=== PATIENT | female | born 1990 | race Caucasian/White ===

== ENCOUNTER 2018-10-20 19:52 | Emergency (ER) | payer MEDICAID ==
--- NOTE | 2018-10-20 20:10 | Emergency Department Report ---
Chief Complaint: Vaginal Bleeding Stated Complaint: BACK PAIN, VAGINAL BLEEDING Time Seen by Provider: 10/20/18 20:04 - HPI History of Present Illness: This is a 28 y.o. female who was seen at [facility] office at [facility] and told she was having a miscarriage. She was told to come to the ER to have a D/C with Dr. Willingham. Vaginal bleeding started 9 days ago. LMP 08/15/18, A0. - ROS Review of Systems: Vaginal bleeding and low back pain - Exam Vital Signs: Vital Signs 10/20/18 19:56 Temperature 97.4 F L Pulse Rate 106 H Respiratory 18 Rate Blood Pressure 158/88 [right] O2 Sat by Pulse 100 Oximetry MSE screening note: Focused history and physical exam performed. Due to findings the following was ordered: Labs and OB US. ACC for further evaluation. ED Disposition for MSE Condition: Stable
[2018-10-20 20:37] LABS: Basophils # (Auto) 0.1 K/mm3 (0.0-0.1); Basophils % (Auto) 0.8 % (0.0-1.8); Eosinophils # (Auto) 0.1 K/mm3 (0.0-0.4); Eosinophils % (Auto) 0.4 % (0.0-4.3); Hematocrit 38.9 % (30.3-42.9); Lymphocytes # (Auto) 1.9 K/mm3 (1.2-5.4); Mean Corpuscular HGB Conc 33 % (30-34); Mean Corpuscular Volume 91 fl (79-97); Monocytes # (Auto) 0.6 K/mm3 (0.0-0.8); Monocytes % (Auto) 5.1 % (0.0-7.3); Platelet Count 280 K/mm3 (140-440); Red Cell Distribution Width 13.7 % (13.2-15.2)
--- NOTE | 2018-10-20 23:49 | Ultrasound Report ---
PROCEDURE: US OB <= 14 WEEKS FETUS TECHNIQUE: Real-time transabdominal sonography of the uterus, placenta, amniotic fluid, adnexa, and fetus was performed with image documentation. Measurements were obtained to determine age/size. M-mode Doppler was used to document heartbeat. ADDITIONAL GESTATION: None. HISTORY: vaginal bleeding, 5 wks gest COMPARISONS: None . FINDINGS: CRL: 4 mm, which corresponds to a gestational age of: 6 weeks, 1 days. Yolk Sac: Appropriate for gestational age. . Embryonic Cardiac Activity: No heart activity on this scan . Gestational Sac: Size and shape are appropriate for gestational age Placenta: Normal Amniotic fluid: Appropriate for gestational age. Cervix: Normal. Right Ovary: Dominant cyst measures 2.3 cm . Left Ovary: Normal . Uterus and adnexa: Normal. The findings may indicate multiple etiologies including early or failure. Follow- up studies may include serial beta-hCG levels and repeat ultrasound. IMPRESSION: There is a gestational sac within the uterus. The gestational age is approximately 6 weeks. A p ole is identified. No heart activity is identified on this study. This study may be too early f or cardiac activity. The findings may indicate multiple etiologies as described. Follow-up stud ies may include serial beta-hCG levels and repeat ultrasound. This document is electronically signed by Ginger Galindo DO., October 20 2018 11:47:18 PM ET
[2018-10-21 00:18] LABS: Bilirubin,Urine NEG (Negative); Blood,Urine LG (Negative); Color,Urine Yellow (Yellow); Mucus,Urine FEW /HPF; Urobilinogen,Urine < 2.0 mg/dL (<2.0)
[2018-10-21 00:21] LABS: RBC,Urine > 182.0 /HPF (0.0-6.0)
--- NOTE | 2018-10-21 00:29 | Emergency Department Report ---
ED HPI - General Chief complaint: Vaginal Bleeding Stated complaint: BACK PAIN, VAGINAL BLEEDING Time Seen by Provider: 10/20/18 20:04 Source: patient Mode of arrival: Ambulatory Limitations: No Limitations - History of Present Illness Initial comments: This a 28-year-old female Presents to the emergency room with vaginal bleeding that started 9 days ago. The patient reports she is 5 weeks . She was seen in her [employer] OPERATOR office at [facility] and told she may possibly be miscarriage. She was told to come to the ER to have a D&C with Dr. Willingham. Her last menstrual period was 08/15/18, A0. She denies abdominal pain, back pain, urinary frequency, urinary urgency, or dysuria. MD Complaint: vaginal bleeding Onset/Timin -: days(s) Severity: mild Improves with: none Worsens with: none Associated symptoms: vaginal bleeding. denies: nausea/vomiting, vaginal discharge, abdominal pain, headache, vision changes, malaise, dysparuenia, rash, shortness of breath, syncope, weakness Vaginal bleeding: light :: Yes Number of weeks : 5 OB History - Current : no complications OB History - Previous Pregnancies: no complications Last menstrual period: 08/15/18 Pre-cuate care: followed by OB - Related Data : 4 Para: 3 Ab: 0 Allergies Allergy/AdvReac Type Severity Reaction Status Date / Time acetaminophen [From Percocet] Allergy Rash Verified 10/20/18 20:08 codeine Allergy Rash Verified 10/20/18 20:09 metoclopramide [From Reglan] Allergy Rash Verified 10/20/18 20:08 oxycodone [From Percocet] Allergy Rash Verified 10/20/18 20:08 Penicillins Allergy Rash Verified 10/20/18 20:08 ED Review of Systems ROS: Stated complaint: BACK PAIN, VAGINAL BLEEDING Other details as noted in HPI Constitutional: denies: chills, fever Respiratory: denies: cough, shortness of breath, wheezing Cardiovascular: denies: chest pain, palpitations Gastrointestinal: denies: abdominal pain, nausea, diarrhea Genitourinary: other (vaginal bleeding during ). denies: urgency, dysuria, discharge Musculoskeletal: denies: back pain, joint swelling, arthralgia Skin: denies: rash, lesions Neurological: denies: headache, weakness, paresthesias Psychiatric: denies: anxiety, depression ED Past Medical Hx - Past Medical History Previous Medical History?: No - Social History Smoking Status: Current Every Day Smoker Substance Use Type: None ED Physical Exam - General Limitations: No Limitations General appearance: alert, in no apparent distress, obese - Respiratory Respiratory exam: Present: normal lung sounds bilaterally. Absent: respiratory distress - Cardiovascular Cardiovascular Exam: Present: regular rate, normal rhythm. Absent: systolic m urmur, diastolic murmur, rubs, gallop - GI/Abdominal GI/Abdominal exam: Present: soft, normal bowel sounds. Absent: distended, tenderness, guarding, rebound, rigid, organomegaly, mass, bruit, pulsatile mass - Back Exam Back exam: Absent: CVA tenderness (R), CVA tenderness (L) - Neurological Exam Neurological exam: Present: alert, oriented X3, normal gait - Psychiatric Psychiatric exam: Present: normal affect, normal mood - Skin Skin exam: Present: warm, dry, intact, normal color. Absent: rash ED Course Vital Signs 10/20/18 19:56 Temperature 97.4 F L Pulse Rate 106 H Respiratory 18 Rate Blood Pressure 158/88 [right] O2 Sat by Pulse 100 Oximetry ED Medical Decision Making - Lab Data Result diagrams: 10/20/18 20:16 Lab Results 10/20/18 10/20/18 10/20/18 Range/Units 20:16 20:16 20:16 WBC 11.7 H (4.5-11.0) K/mm3 RBC 4.30 (3.65-5.03) M/mm3 Hgb 13.0 (10.1-14.3) gm/dl Hct 38.9 (30.3-42.9) % MCV 91 (79-97) fl MCH 30 (28-32) pg MCHC 33 (30-34) % RDW 13.7 (13.2-15.2) % Plt Count 280 (140-440) K/mm3 Lymph % (Auto) 16.0 (13.4-35.0) % Kimble % (Auto) 5.1 (0.0-7.3) % Eos % (Auto) 0.4 (0.0-4.3) % Baso % (Auto) 0.8 (0.0-1.8) % Lymph # 1.9 (1.2-5.4) K/mm3 Kimble # 0.6 (0.0-0.8) K/mm3 Eos # 0.1 (0.0-0.4) K/mm3 Baso # 0.1 (0.0-0.1) K/mm3 Seg Neutrophils % 77.7 H (40.0-70.0) % Seg Neutrophils # 9.1 H (1.8-7.7) K/mm3 HCG, Quant 804.5 H (0-4) mIU/mL Urine Color (Yellow) Urine Turbidity (Clear) Urine pH (5.0-7.0) Ur Specific Henderson (1.003-1.030) Urine Protein (Negative) mg/dL Urine Glucose (UA) (Negative) mg/dL Urine Ketones (Negative) mg/dL Urine Blood (Negative) Urine Nitrite (Negative) Urine Bilirubin (Negative) Urine Urobilinogen (<2.0) mg/dL Ur Leukocyte Esterase (Negative) Urine WBC (Auto) (0.0-6.0) /HPF Urine RBC (Auto) (0.0-6.0) /HPF U Epithel Cells (Auto) (0-13.0) /HPF Urine Mucus /HPF Blood Type O POSITIVE Antibody Screen Negative 10/20/18 Range/Units 23:52 WBC (4.5-11.0) K/mm3 RBC (3.65-5.03) M/mm3 Hgb (10.1-14.3) gm/dl Hct (30.3-42.9) % MCV (79-97) fl MCH (28-32) pg MCHC (30-34) % RDW (13.2-15.2) % Plt Count (140-440) K/mm3 Lymph % (Auto) (13.4-35.0) % Kimble % (Auto) (0.0-7.3) % Eos % (Auto) (0.0-4.3) % Baso % (Auto) (0.0-1.8) % Lymph # (1.2-5.4) K/mm3 Kimble # (0.0-0.8) K/mm3 Eos # (0.0-0.4) K/mm3 Baso # (0.0-0.1) K/mm3 Seg Neutrophils % (40.0-70.0) % Seg Neutrophils # (1.8-7.7) K/mm3 HCG, Quant (0-4) mIU/mL Urine Color Yellow (Yellow) Urine Turbidity Slightly-cloudy (Clear) Urine pH 6.0 (5.0-7.0) Ur Specific Henderson 1.015 (1.003-1.030) Urine Protein 30 mg/dl (Negative) mg/dL Urine Glucose (UA) Neg (Negative) mg/dL Urine Ketones Neg (Negative) mg/dL Urine Blood Lg (Negative) Urine Nitrite Neg (Negative) Urine Bilirubin Neg (Negative) Urine Urobilinogen < 2.0 (<2.0) mg/dL Ur Leukocyte Esterase Neg (Negative) Urine WBC (Auto) 5.0 (0.0-6.0) /HPF Urine RBC (Auto) > 182.0 (0.0-6.0) /HPF U Epithel Cells (Auto) 2.0 (0-13.0) /HPF Urine Mucus Few /HPF Blood Type Antibody Screen - Radiology Data Radiology results: report reviewed PROCEDURE: US OB TRANSVAGINAL TECHNIQUE: Real-time transabdominal sonography of the uterus, placenta, amniotic fluid, adnexa, and fetus was performed with image documentation. Measurements were obtained to determine age/size. M-mode Doppler was used to document heartbeat. ADDITIONAL GESTATION: None. HISTORY: vaginal bleeding, 5 wks gest COMPARISONS: None . FINDINGS: CRL: 4 mm, which corresponds to a gestational age of: 6 weeks, 1 days. Yolk Sac: Appropriate for gestational age. . Embryonic Cardiac Activity: No heart activity on this scan . Gestational Sac: Size and shape are appropriate for gestational age Placenta: Normal Amniotic fluid: Appropriate for gestational age. Cervix: Normal. Right Ovary: Dominant cyst measures 2.3 cm . Left Ovary: Normal . Uterus and adnexa: Normal. The findings may indicate multiple etiologies including early or failure. Follow-up studies may include serial beta-hCG levels and repeat ultrasound. IMPRESSION: There is a gestational sac within the uterus. The gestational age is approximately 6 weeks. A pole is identified. No heart activity is identified on this study. This study may be too early for cardiac activity. The findings may indicate multiple etiologies as described. Follow-up studies may include serial beta-hCG levels and repeat ultrasound. - Medical Decision Making This is a 28 y.o. female presents with vaginal bleeding during for 9 days. Patient was examined by me. Vitals are normal and patient is in no acute distress. Obtained a urinalysis, CBC, hCG quant, and OB ultrasound. Quant 804.5 all other labs unremarkable. There is a gestational sac within the uterus. The gestational age is approximately 6 weeks. A pole is identified. No heart activity is identified on this study. This study may be too early for cardiac activity. The findings may indicate multiple etiologies as described. Follow-up studies may include serial beta-hCG levels and repeat ultrasound. Patient instructed to have repeat hCG quant in 48 hours with OB/ [facility] or in ER to r/o miscarriage. Patient discharged home in stable condition. Critical care attestation.: If time is entered above; I have spent that time in minutes in the direct care of this critically ill patient, excluding procedure time. ED Disposition Clinical Impression: Threatened miscarriage in early , Vaginal bleeding affecting early Disposition: TO HOME OR SELFCARE Is pt being admited?: No Does the pt Need Aspirin: No Condition: Stable Instructions: Threatened Miscarriage (ED) Additional Instructions: Have repeat hCG quant labs in 48 hours with S[facility] SCREW MACHINE OPERATOR or ER. Your hCG quantitative on this visit was 804.5. Remain on bed rest. Follow up with S[employer] SCREW MACHINE OPERATOR in 24-48 hours. Return to ER if increased vaginal bleeding, abdominal pain, and low back pain. Referrals: [facility] [Provider Group] - 3-5 Days [facility] [Provider Group] - 3-5 Days [facility] [facility] [Provider Group] - 3-5 Days Time of Disposition: 00:32
[2018-10-21 00:50] VITALS: BP 155/72
== END 2018-10-21 01:46 | disposition home or self-care (01) ==
LOC: ED 19:52
DX: O20.0 Threatened abortion (principal); Z3A.01 Less than 8 weeks gestation of pregnancy
CPT/HCPCS: 36415; 76801; 76817; 81001; 84702; 85025; 86850; 86900; 86901

== ENCOUNTER 2020-05-06 10:37 | Emergency (ER) | payer MEDICAID ==
[2020-05-06 10:59] VITALS: BP 129/70
[2020-05-06] MEDS ORDERED: ONDANSETRON 4 MG/2 ML INJ IV ONE (17:47)
[2020-05-06] MEDS ORDERED: SODIUM CHLORIDE 0.9% 1000 ML 1,000 ML IV ONE (17:47)
[2020-05-06] MEDS ORDERED: D5W/0.45% NACL 1,000 ML IV SCH (18:00)
[2020-05-06 18:36] LABS: Basophils # (Auto) 0.1 K/mm3 (0.0-0.1); Basophils % (Auto) 0.7 % (0.0-1.8); Eosinophils # (Auto) 0.1 K/mm3 (0.0-0.4); Eosinophils % (Auto) 0.6 % (0.0-4.3); Hematocrit 37.5 % (30.3-42.9); Lymphocytes # (Auto) 3.1 K/mm3 (1.2-5.4); Lymphocytes % (Auto) 22.5 % (13.4-35.0); Mean Corpuscular HGB Conc 35 % (30-34); Mean Corpuscular Volume 89 fl (79-97); Monocytes % (Auto) 7.4 % (0.0-7.3); Platelet Count 266 K/mm3 (140-440); Red Blood Count 4.19 M/mm3 (3.65-5.03); Red Cell Distribution Width 13.1 % (13.2-15.2)
[2020-05-06 19:16] LABS: Alanine Aminotransferase 17 units/L (7-56); Albumin 4.9 g/dL (3.9-5); Blood Urea Nitrogen 9 mg/dL (7-17); Calcium 9.8 mg/dL (8.4-10.2); Hemolysis Index 12
[2020-05-06 19:20] LABS: BUN/Creatinine Ratio 15
--- NOTE | 2020-05-06 19:34 | Emergency Department Report ---
<BERYL MARIN - Last Filed: 05/06/20 20:53> ED General Adult HPI - General Chief complaint: Nausea/Vomiting/Diarrhea Stated complaint: 6 WEEKS /CANT KEEP ANYTHING DOWN Time Seen by Provider: 05/06/20 17:24 Source: patient Mode of arrival: Ambulatory Limitations: No Limitations - History of Present Illness Initial comments: Patient is a 30-year-old female presents emergency room with complaints of nausea and vomiting that began a week ago. She states that it has worsened in the last few days and she is not able to tolerate p.o. intake. She states that she is currently approximately 7 weeks . She states that she is also been having some lower abdominal cramping and spotting whenever she wipes. She denies any heavy bleeding or passing clots. She states that her [facility] SERVICES REPRESENTATIVE is at [facility]. She states that that she went there today at 2 PM and they advised her to be evaluated in the emergency department. She states that yesterday she went to [facility] emergency room and had lab work performed and urine sample and was given IV fluids and medications. She states that she was diagnosed with a urinary tract infection and given a prescription for antibiotics. She states that her OB also gave her Zofran and that the other ER gave her Phenergan suppositories. She states despite the medications she is still had vomiting. She states her last menstrual cycle was March 28. She denies any past medical history. She has an allergy to Percocet, codeine, Reglan, penicillin. /P:3/A:1 Severity scale (0 -10): 1 - Related Data Allergies Allergy/AdvReac Type Severity Reaction Status Date / Time acetaminophen [From Percocet] Allergy Rash Verified 10/20/18 20:08 codeine Allergy Rash Verified 10/20/18 20:09 metoclopramide [From Reglan] Allergy Rash Verified 10/20/18 20:08 oxycodone [From Percocet] Allergy Rash Verified 10/20/18 20:08 Penicillins Allergy Rash Verified 10/20/18 20:08 ED Review of Systems Comment: All other systems reviewed and negative ED Past Medical Hx - Past Medical History Previous Medical History?: No - Surgical History Past Surgical History?: No - Social History Smoking Status: Current Every Day Smoker Substance Use Type: None ED Physical Exam - General Limitations: No Limitations General appearance: alert, in no apparent distress - Head Head exam: Present: atraumatic, normocephalic - Eye Eye exam: Present: normal appearance - ENT ENT exam: Present: mucous membranes moist - Respiratory Respiratory exam: Present: normal lung sounds bilaterally. Absent: respiratory distress, wheezes, rales, rhonchi, stridor, chest wall tenderness, accessory muscle use, decreased breath sounds, prolonged expiratory - Cardiovascular Cardiovascular Exam: Present: regular rate, normal rhythm, normal heart sounds. Absent: systolic murmur, diastolic murmur, rubs, gallop - GI/Abdominal GI/Abdominal exam: Present: soft, normal bowel sounds. Absent: distended, tenderness, guarding, rebound, rigid - Neurological Exam Neurological exam: Present: alert, oriented X3 - Psychiatric Psychiatric exam: Present: normal affect, normal mood - Skin Skin exam: Present: warm, dry, intact ED Medical Decision Making - Lab Data Result diagrams: 05/06/20 18:01 05/06/20 18:01 Lab Results 05/06/20 05/06/20 05/06/20 Range/Units 18:01 18:01 18:01 WBC 13.9 H (4.5-11.0) K/mm3 RBC 4.19 (3.65-5.03) M/mm3 Hgb 13.0 (10.1-14.3) gm/dl Hct 37.5 (30.3-42.9) % MCV 89 (79-97) fl MCH 31 (28-32) pg MCHC 35 H (30-34) % RDW 13.1 L (13.2-15.2) % Plt Count 266 (140-440) K/mm3 Lymph % (Auto) 22.5 (13.4-35.0) % Mccreary % (Auto) 7.4 H (0.0-7.3) % Eos % (Auto) 0.6 (0.0-4.3) % Baso % (Auto) 0.7 (0.0-1.8) % Lymph # (Auto) 3.1 (1.2-5.4) K/mm3 Mccreary # (Auto) 1.0 H (0.0-0.8) K/mm3 Eos # (Auto) 0.1 (0.0-0.4) K/mm3 Baso # (Auto) 0.1 (0.0-0.1) K/mm3 Seg Neutrophils % 68.8 (40.0-70.0) % Seg Neutrophils # 9.5 H (1.8-7.7) K/mm3 Sodium 139 (137-145) mmol/L Potassium 3.9 (3.6-5.0) mmol/L Chloride 98.6 (98-107) mmol/L Carbon Dioxide 21 L (22-30) mmol/L Anion Gap 23 mmol/L BUN 9 (7-17) mg/dL Creatinine 0.6 (0.6-1.2) mg/dL Estimated GFR > 60 ml/min BUN/Creatinine Ratio 15 % Glucose 74 (65-100) mg/dL Calcium 9.8 (8.4-10.2) mg/dL Total Bilirubin 0.60 (0.1-1.2) mg/dL AST 17 (5-40) units/L ALT 17 (7-56) units/L Alkaline Phosphatase 85 (35-129) units/L Total Protein 7.9 (6.3-8.2) g/dL Albumin 4.9 (3.9-5) g/dL Albumin/Globulin Ratio 1.6 % HCG, Quant 84333 H (0-4) mIU/mL Blood Type 05/06/20 Range/Units 18:01 WBC (4.5-11.0) K/mm3 RBC (3.65-5.03) M/mm3 Hgb (10.1-14.3) gm/dl Hct (30.3-42.9) % MCV (79-97) fl MCH (28-32) pg MCHC (30-34) % RDW (13.2-15.2) % Plt Count (140-440) K/mm3 Lymph % (Auto) (13.4-35.0) % Mccreary % (Auto) (0.0-7.3) % Eos % (Auto) (0.0-4.3) % Baso % (Auto) (0.0-1.8) % Lymph # (Auto) (1.2-5.4) K/mm3 Mccreary # (Auto) (0.0-0.8) K/mm3 Eos # (Auto) (0.0-0.4) K/mm3 Baso # (Auto) (0.0-0.1) K/mm3 Seg Neutrophils % (40.0-70.0) % Seg Neutrophils # (1.8-7.7) K/mm3 Sodium (137-145) mmol/L Potassium (3.6-5.0) mmol/L Chloride (98-107) mmol/L Carbon Dioxide (22-30) mmol/L Anion Gap mmol/L BUN (7-17) mg/dL Creatinine (0.6-1.2) mg/dL Estimated GFR ml/min BUN/Creatinine Ratio % Glucose (65-100) mg/dL Calcium (8.4-10.2) mg/dL Total Bilirubin (0.1-1.2) mg/dL AST (5-40) units/L ALT (7-56) units/L Alkaline Phosphatase (35-129) units/L Total Protein (6.3-8.2) g/dL Albumin (3.9-5) g/dL Albumin/Globulin Ratio % HCG, Quant (0-4) mIU/mL Blood Type O POSITIVE - Medical Decision Making Patient is a 30-year-old female presents emergency room with complaints of nausea and vomiting that began a week ago. She states that it has worsened in the last few days and she is not able to tolerate p.o. intake. She states that she is currently approximately 7 weeks . She states that she is also been having some lower abdominal cramping and spotting whenever she wipes. She denies any heavy bleeding or passing clots. She states that her PLAYER SERVICES REPRESENTATIVE is at [facility]. She states that that she went there today at 2 PM and they advised her to be evaluated in the emergency department. She states that yesterday she went to [facility] emergency room and had lab work performed and urine sample and was given IV fluids and medications. She states that she was diagnosed with a urinary tract infection and given a prescription for antibiotics. She states that her OB also gave her Zofran and that the other ER gave her Phenergan suppositories. She states despite the medications she is still had vomiting. She states her last menstrual cycle was March 28. She denies any past medical history. She has an allergy to Percocet, codeine, Reglan, penicillin. /P: 3/A:1. vitals are normal. no abd ttp on exam. labs with mildly elevated WBC could be inflammatory secondary to [place] [address]. pt is Rh positive. H/H is normal. pt given IVF and zofran and symptoms resolved and she was able to tolerate PO intake. patient signed out to Chucho Messer PA-C pending OB US - Differential Diagnosis hyperemesis, dehydration, electrolyte dz, IUP, ectopic, subchorionic hemorr ED Disposition Clinical Impression: Hyperemesis gravidarum, Abdominal pain during in first trimester Disposition: DC-01 TO HOME OR SELFCARE Condition: Stable Instructions: Hyperemesis Gravidarum (ED) Additional Instructions: Take medication as needed for nausea and vomiting, drink plenty of fluids and follow-up with your PLAYER SERVICES REPRESENTATIVE physician in 3 to 5 days for reevaluation. Return to the ED immediately if symptoms get worse. Referrals: WARREN WRIGHT MD [Staff Physician] - 3-5 Days Print Language: BANGLADESHI <CHUCHO MESSER - Last Filed: 05/06/20 23:03> ED Review of Systems ROS: Stated complaint: 6 WEEKS /CANT KEEP ANYTHING DOWN Other details as noted in HPI ED Course Vital Signs 05/06/20 10:54 Temperature 99.2 F Pulse Rate 86 Respiratory 18 Rate Blood Pressure 129/70 [Right] O2 Sat by Pulse 100 Oximetry ED Medical Decision Making - Lab Data Result diagrams: 05/06/20 18:01 05/06/20 18:01 - Medical Decision Making I assumed care of the patient from Ms. Beryl Marin PA-C at shift change at 2130 hrs. Briefly the patient is a 30-year-old -[place] female who is a A1 and with no past medical history and who is approximately 6 weeks gestation and who presented to the ED with intractable nausea and vomiting for the last 1 week with vaginal spotting and lower abdominal pain. Patient was extensively worked up in the ED and treated for nausea and vomiting and also given normal saline 1 L IV bolus x1. On reevaluation, patient felt better and passed oral fluid challenge. Lab test results were reviewed and are all [place] [address] and acute leukocytosis of 13,900. Patient drank water and ate food in the ED with no nausea or vomiting. Patient was discharged home and advised to continue taking the antiemetics that she already has at home which includes Phenergan oral tablets, Phenergan suppositories and Zofran ODT. Patient was advised to follow-up with [employer] SERVICES REPRESENTATIVE physician in 5 to 7 days for reevaluation or return to the ED immediately if symptoms get worse. Critical care attestation.: If time is entered above; I have spent that time in minutes in the direct care of this critically ill patient, excluding procedure time. ED Disposition Is pt being admited?: No Does the pt Need Aspirin: No Time of Disposition: 22:57
--- NOTE | 2020-05-06 21:48 | Ultrasound Report ---
FIRSTTRIMESTER OBSTETRIC ULTRASOUND HISTORY: Provided clinical history of , cramping, spotting COMPARISON: None. TECHNIQUE: Routine transabdominal OB ultrasound performed. FINDINGS: Uterus: Mildly enlarged measuring 10.1 x 4.5 x 5.4 cm. Endometrial thickness is 10 mm. Subcentimete r nabothian cyst. Gestational Sac: Appears well-defined oval shape and intrauterine in location, however visualization is slightly difficult on today's examination. Yolk Sac: Satisfactory appearance. Fetus/Embryo: [place]-rump length of 6.2 cm, corresponding to an estimated gestational age of 6 weeks a nd 3 days. Embryonic/ anatomy is too small for evaluation. Embryonic/ cardiac activity: 119bpm Placenta: Too small for evaluation. Amniotic fluid volume: Subjectively appropriate for gestational age. Ovaries: The right ovary is normal in size and appearance with normal blood flow, measuring 4.5 x 3. 1 x 3.9 cm. The left ovary is normal in size and appearance with normal blood flow, measuring 2.1 x 1.5 x 2.1 cm. Hypoechoic space-occupying mass in the right ovary with peripheral vascularity is most likely the corpus luteum. Additional findings: Small amount of free fluid in the posterior cul-de-sac. IMPRESSION: 1. Early live intrauterine . Estimated age by crown-rump length is 6 weeks and 3 days. No si gnificant abnormality is visualized. Recommend continued follow-up and further evaluation as warrante d. Signer Name: Stevie Miller MD Signed: 05/06/2020 9:44 PM Workstation Name: [id number]
== END 2020-05-06 23:05 | disposition home or self-care (01) ==
LOC: ED 10:37
DX: O21.0 Mild hyperemesis gravidarum (principal); F17.200 Nicotine dependence, unspecified, uncomplicated; Z88.0 Allergy status to penicillin; Z88.6 Allergy status to analgesic agent; Z88.8 Allergy status to other drugs, medicaments and biological substances; Z3A.01 Less than 8 weeks gestation of pregnancy
CPT/HCPCS: 36415; 76801; 80053; 84702; 85025; 86900; 86901; 96361; 96374; 99284; J2405; J7030

== ENCOUNTER 2020-05-13 11:32 | Observation (INO) | payer BC, MEDICAID ==
--- NOTE | 2020-05-13 11:34 | History and Physical Report ---
History of Present Illness Date of examination: 05/13/20 Date of admission: 05/13/2020 Chief complaint: cant keep anything down History of present illness: OB Visit Record - 7 6/7 weeks ( P: 3) EDC: 12/24/2020 Weight today: 173 lbs. - Change since last visit: -9 Pre-preg wt: 187 lbs. - Change for : -14 BP: 108/64 Temp: 96.8 Urine Tests Protein: 4+ Glucose: negative Nitrite: negative Leukocytes: negative Chief Complaint / Current Status: c/o nausea and vomitting, unable to keep anything down: ob labs, ob u/s, HIV, urine c&s, otogenetics: pt unable to do early 1hr gtt......................................................................Joann Crenshaw May 13, 2020 10:07 AM Mask, Patient denies fever, cough, shortness of breath and exposure to COVID-19. Pt states unable to keep anything down since last visit. Reports zofran, rectal promethazine and oral promethazine have not been effective. States she feels weak. I d/w admission for hypermesis. States she has been in touch with [facility] and that she has a zofran pump set up but it will not start until Tuesday. Pt agrees with admission. Physical Exam Activity: EDC Calculations EDC Confirmation: 12/24/2020 Gestational Age: 7 6/7 weeks Laboratory Results Routine Urinalysis Leukocytes: negative Nitrite: negative Urobilinogen: negative Protein: 4+ Blood: negative Ketone: large (160) Bilirubin: negative Glucose: negative Past History : 5 Term Births: 3 Premature Births: 0 Living Children: 3 Para: 3 Mult. Births: 0 Prev : 3 Prev. attempt? 0 Aborta: 1 Elect. Ab: 0 Spont. Ab: 1 Ectopics: 0 # 1 Delivery date: 2005 Delivery type: Comments: distress # 2 Delivery date: 2008 Delivery type: Comments: repeat # 3 Delivery date: 2014 Delivery type: Comments: repeat # 4 Delivery date: 2018 Delivery type: SAB Past Medical History: Reviewed history from 08/27/2019 and no changes required: Ovarian Cysts Abnormal Pap Smear - cyrosurgery in 2009 Past Surgical History: Reviewed history from 08/27/2019 and no changes required: x 3 L ovarian cyst removal 2009 Past Medical History Anesthesia Complications: negative Surgery (Non-cylinder honer): x 3 L ovarian cyst removal 2009 Abnormal PAP: positive Social Hx: Patient is Smoking History: Patient currently smokes every day. 3 cigs/day Patient has been counseled to quit. Plans to start nicotine patch 09/2019 Infection History Hx of STD: Trich HIV Risk Eval: low risk Hepatitis B Risk Eval: low risk Personal hx. of genital herpes: yes Partner hx. of genital herpes: no Rash, Viral, or Febrile illness since last LMP? no Genetic History Congenital Heart Defect: Mom: no Dad: no Niranjan Disease: Mom: no Dad: no Thalassemia Mom: no Dad: no Neural Tube Defect Mom: no Dad: no Down's Syndrome Mom: no Dad: no Pradip-Sachs Mom: no Dad: no Sickle Cell Disease/Trait Mom: no Dad: no Hemophilia Mom: no Dad: no Muscular Dystrophy Mom: no Dad: no Cystic Fibrosis Mom: no Dad: no [place] Chorea Mom: no Dad: no Mental Retardation Mom: no Dad: no Fragile X Mom: no Dad: no Other Genetic/Chromosomal Disorder Mom: no Dad: no Child w/other defect Mom: no Dad: no Enviromental Exposures Xray Exposure: no Medication, drug, or alcohol use since LMP: no Chemical/Other Exposure: no Exposure to Cat Liter: no Hx of Parvovirus (Fifth Disease): no Occupational Exposure to Children: none Past History Past Medical History: other (see hpi) Past Surgical History: other (see hpi) MISSILEMAN History: other (see hpi) Family/Genetic History: other (see hpi) Social history: no significant social history, , other (see hpi) - Obstetrical History Expected Date of Delivery: 12/24/20 Actual Gestation: 7 Week(s) 6 Day(s) : 5 Para: 3 (all c-sections) Hx # Term Pregnancies: 3 Number of Pregnancies: 0 Spontaneous Abortions: 1 Induced : 0 Number of Living Children: 3 Medications and Allergies Allergies Allergy/AdvReac Type Severity Reaction Status Date / Time acetaminophen [From Percocet] Allergy Rash Verified 10/20/18 20:08 codeine Allergy Rash Verified 10/20/18 20:09 metoclopramide [From Reglan] Allergy Rash Verified 10/20/18 20:08 oxycodone [From Percocet] Allergy Rash Verified 10/20/18 20:08 Penicillins Allergy Rash Verified 10/20/18 20:08 - Physical Exam Cardiovascular: Normal S1, Normal S2 Lungs: Positive: Normal air movement Abdomen: Positive: normal appearance, soft. Negative: distention, tenderness, guarding Genitourinary (Female): Positive: other (deferred) Deep Tendon Reflex Grade: Normal +2 - Obstetrical FHR: other (noted on sonogram in office FHR 160) Results All other labs normal. Assessment and Plan - Patient Problems (1) 6 weeks gestation of Status: Acute (2) Hyperemesis gravidarum Status: Acute Plan to address problem: -admit -hyperemesis protocol -as per pt she is set up with [facility] for the zofran pump to start Tuesday -providers family practitioner aware of admission.
[2020-05-13] MEDS ORDERED: POTASSIUM CHLORIDE 10 MEQ 10 MEQ/100 ML BAG IV SCH (12:00)
[2020-05-13] MEDS ORDERED: D5 IV SCH (14:15)
[2020-05-13] MEDS ORDERED: MULTIPLE VITAMIN IV SCH (14:15)
[2020-05-13] MEDS ORDERED: LACTATED RINGERS IV SCH (14:15)
[2020-05-13] MEDS ORDERED: [UNRECOGNIZED DRUG - OTHER] IV SCH (14:15)
[2020-05-13] MEDS ORDERED: POTASSIUM CHLORIDE IV SCH ×2 (14:15→16:30)
[2020-05-13 15:41] LABS: Basophils # (Auto) 0.1 K/mm3 (0.0-0.1); Basophils % (Auto) 0.5 % (0.0-1.8); Eosinophils # (Auto) 0.1 K/mm3 (0.0-0.4); Eosinophils % (Auto) 0.4 % (0.0-4.3); Hematocrit 38.2 % (30.3-42.9); Hemoglobin 13.3 gm/dl (10.1-14.3); Lymphocytes # (Auto) 1.9 K/mm3 (1.2-5.4); Lymphocytes % (Auto) 15.8 % (13.4-35.0); Mean Corpuscular HGB Conc 35 % (30-34); Mean Corpuscular Volume 88 fl (79-97); Monocytes # (Auto) 0.9 K/mm3 (0.0-0.8); Monocytes % (Auto) 7.2 % (0.0-7.3); Platelet Count 275 K/mm3 (140-440); Red Blood Count 4.32 M/mm3 (3.65-5.03); Red Cell Distribution Width 13.3 % (13.2-15.2)
[2020-05-13 16:02] LABS: Blood Urea Nitrogen 9 mg/dL (7-17); Calcium 9.9 mg/dL (8.4-10.2); Hemolysis Index 3
[2020-05-13 16:20] LABS: BUN/Creatinine Ratio 15
[2020-05-13] MEDS: D5W/LACTATED RINGERS 1,000 ML IV SCH ×3 (16:22→20:23)
[2020-05-13] MEDS ORDERED: SODIUM CHLORIDE 0.9% IV SCH (16:30)
[2020-05-13 16:54] LABS: Hepatitis B Surface Antigen Non-Reactive (Negative); Hepatitis C Virus Antibody Non-Reactive (NonReactive)
[2020-05-13] MEDS: ONDANSETRON 4 MG/2 ML INJ IV PRN (18:03)
[2020-05-13] MEDS: PROMETHAZINE 25 MG RECT SUPP PR SCH (18:04)
[2020-05-14] MEDS: ONDANSETRON 4 MG/2 ML INJ IV PRN ×3 (00:11→13:23)
[2020-05-14] MEDS: PROMETHAZINE 25 MG RECT SUPP PR SCH ×3 (00:12→13:23)
[2020-05-14] MEDS: D5W/LACTATED RINGERS 1,000 ML IV SCH ×2 (02:59→12:21)
--- NOTE | 2020-05-14 08:34 | Progress Note ---
Assessment and Plan A: 30 y.o. @ 7 + wks with hyper emesis. States can not keep anything solid or liquids down. P: Continue with IV fluids and anti emetics for now. Will try clear liquid diet this AM. Subjective - Subjective Date of service: 05/14/20 ("I still can't keep anything down") Principal diagnosis: 7 + wks IUP with hyper emesis Patient reports: appetite poor, nauseated Objective - Vital Signs Latest vital signs: Vital Signs Temp Pulse Resp BP BP Pulse Ox 05/14/20 07:20 98.0 F 58 L 18 99/52 98 05/14/20 04:59 98.5 F 62 18 105/65 94 05/14/20 00:40 97.9 F 57 L 18 128/69 100 05/13/20 20:10 97.6 F 58 L 20 120/65 100 05/13/20 17:28 98.1 F 72 20 115/63 99 Intake and Output 05/13/20 05/14/20 05/14/20 22:59 06:59 14:59 Intake Total 1100 990 Output Total 100 400 Balance 1000 590 Intake: IV 1000 990 D5lr 1,000 ml @ 150 mls/ 990 hr IV DIRECT AYSE Rx#: [id number] D5lr 1,000 ml @ 500 mls/ 1000 hr IV DIRECT AYSE Rx#: [id number] Intake, Free Water 100 Output: Urine 100 400 Void 100 400 Other: Total, Output Amount 100 400 Voiding Method Toilet Toilet Weight 172 lb 8.011 oz 179 lb 3 oz - Exam Breasts: Present: deferred Cardiovascular: Present: Regular rate Lungs: Present: Normal air movement Abdomen: Present: normal appearance, soft Vulva: both: normal Uterus: Present: normal Extremities: Present: normal Deep Tendon Reflex Grade: Normal +2 - Labs Labs: Abnormal lab results 05/13/20 05/13/20 05/13/20 Range/Units 15:00 15:00 15:00 WBC 12.2 H (4.5-11.0) K/mm3 MCHC 35 H (30-34) % [place] # (Auto) 0.9 H (0.0-0.8) K/mm3 Seg Neutrophils % 76.1 H (40.0-70.0) % Seg Neutrophils # 9.3 H (1.8-7.7) K/mm3 Sodium 136 L (137-145) mmol/L Carbon Dioxide 19 L (22-30) mmol/L TSH 0.018 L (0.270-4.200) mlU/mL
[2020-05-14] MEDS ORDERED: PRENATAL VIT27-FE FUMARATE-FOLIC ACID VIT TAB PO SCH (10:00)
--- NOTE | 2020-05-14 13:11 | Event Note ---
Date: 05/14/20 (Pt still vomiting) Spoke with RN regarding pt. States that she has had jello but it did not stay down. Pt is asking for medication for nausea. Able to tolerate some water intake. Nutrition consult ordered.
[2020-05-14] MEDS ORDERED: diphenhydrAMINE 50 MG/ML VIAL IV PRN (13:21)
[2020-05-14 14:46] LABS: Blood Urea Nitrogen 3 mg/dL (7-17); Hemolysis Index 20
[2020-05-14 14:50] LABS: BUN/Creatinine Ratio 6
--- NOTE | 2020-05-14 18:31 | Discharge Summary ---
Providers - Providers Date of Admission: 05/13/20 13:55 Date of discharge: 05/14/20 Attending physician: JAGDEEP BUTTERFIELD 05/14/20 10:21 Consult to Dietitian/Nutrition [CONS] Routine Physician Instructions: Reason For Exam: Hyper emesis, poor oral intake. Reason for Consult: Poor oral intake Primary care physician: JAGDEEP BUTTERFIELD Hospitalization Reason for admission: other (hyperemesis) Hospital course: Pt admitted and had hyperemesis pathway and was d/c home with tolerating a clear diet as per pt request to be d/c home.Pt has home health with [facility] and zofran pump set up already. Condition at discharge: Good Disposition: DC-01 TO HOME OR SELFCARE - Discharge Diagnoses (1) 6 weeks gestation of Status: Acute (2) Hyperemesis gravidarum Status: Acute Plan - Provider Discharge Summary Additional instructions: [] Smoking cessation referral if applicable(refer to patient education folder for contact #) [] Refer to [facility]'s [facility] Booklet Call your doctor immediately for: * Fever > 100.5 * Heavy vaginal bleeding ( >1 pad per hour) * Severe persistent headache * Shortness of breath * Reddened, hot, painful area to leg or breast * Drainage or odor from incision. * Keep incision clean and dry at all times and follow doctor's instructions regarding bathing/showering - Follow up plan Follow up: JAGDEEP BUTTERFIELD MD [Primary Care Provider] - 7 Days Forms: [facility] Discharge Summary
--- NOTE | 2020-05-14 18:31 | Event Note ---
Date: 05/14/20 Called by RN stating pt ready to go home. States she is able to tolerate the broth as well as juice and is requesting to be d/c. Advised pt will be d/c and f/u in the office in one week.
[2020-05-14 20:48] VITALS: BP 102/52
== END 2020-05-14 20:40 | disposition home or self-care (01) ==
LOC: 3A 11:32 → UNDOADMOB 11:32 → OB 13:55
PROVIDERS: ADMIT Obstetrics & Gynecology; ATTEND Obstetrics & Gynecology
DX: O21.0 Mild hyperemesis gravidarum (principal); Z20.828 Contact with and (suspected) exposure to other viral communicable diseases; O99.331 Smoking (tobacco) complicating pregnancy, first trimester; F17.210 Nicotine dependence, cigarettes, uncomplicated; Z3A.01 Less than 8 weeks gestation of pregnancy; Z98.891 History of uterine scar from previous surgery; Z79.899 Other long term (current) drug therapy
CPT/HCPCS: 36415; 80048; 80074; 82010; 82150; 83690; 84439; 84443; 85025; 96361; 96374; 96376; 99406; G0378; G0379; J2405; J7121; U0003